=== PATIENT | male | born 1960 | race Caucasian/White ===

== ENCOUNTER 2018-11-29 12:27 | Observation (INO) | payer OTHER ==
[2018-11-29] MEDS ORDERED: DUONEB 0.5-3 MG/3 ml Neb IH ONE ×2 (12:48→12:53)
[2018-11-29] MEDS ORDERED: solu-MEDROL 125 MG IV ONE (13:03)
[2018-11-29] MEDS ORDERED: Sodium Chloride 0.9% 1000 ML 1,000 ML IV STA (13:03)
--- NOTE | 2018-11-29 13:09 | ERPHSYRPT ---
- History of Present Illness Time Seen by Provider: 11/29/18 13:05 Source: patient Exam Limitations: no limitations Patient Subjective Stated Complaint: has been diagnosed with Influenza A on Monday and now has shortness of breath with a cough Triage Nursing Assessment: Pt c/o of shortness of breath and chest pain due to a cough, diagnosed Monday with Influenza A, tachycardic, hypertensive, afebrile , hasn't eaten in 4 days, pulse ox was 87% on room air and was placed on 2L NC and it raised to 97%, lungs coarse, weak, hx of COPD Physician History: 58-year-old white male with history of COPD. Patient arrives with complaint of shortness of breath symptoms going on for several days he was seen Monday 3 days ago and diagnosed as having the flu. Patient states he was told that he was too far out to be given any flu medicine he states he is short of breath coughing he states he has had a fever before but not now noted to be tachycardic and hypertensive on arrival. No nausea no vomiting states he hasn't eaten for 4 days. Past medical history includes COPD Past surgical history includes hernia repair. Timing/Duration: day(s) (4 days) Activities at Onset: none Severity of Dyspnea-Max: moderate Severity of Dyspnea-Current: moderate Possible Cause: no prior episodes Modifying Factors: Improves With: nothing Associated Symptoms: constant, cough, fever, loss of appetite, wheezing, No intermittent, No anxiety, No chest pain/discomfort, No edema, No insomnia, No lightheadedness, No weakness, No ankle swelling, No chills, No hemoptysis, No calf pain, No dizziness, No heaviness, No heart racing, No lightheadedness, No leg swelling, No muscle spasms feet, No muscle spasms hands, No painful breathing, No productive cough, No sweating, No tightness, No tingling face, No tingling hands International travel in last 2 weeks: No Allergies/Adverse Reactions: No Known Drug Allergies Allergy (Verified 11/29/18 12:54) Home Medications: Albuterol 8 gm Mdi Hfa [Ventolin Hfa MDI] 1 inh PO UD PRN 11/29/18 [ History] Budesonide [Pulmicort Flexhaler] 90 mcg IH UD PRN 11/29/18 [History] Fluticasone Propionate [Flonase NASAL] 1 spray NS UD PRN 11/29/18 [History ] Hx Influenza Vaccination/Date Given: No - Review of Systems Constitutional: Fever, No Chills, No Fatigue, No Lethargy, No Malaise (slightly socks), No Night Sweats, No Weakness, No Weight Loss Eyes: No Symptoms Ears, Nose, & Throat: No Symptoms Respiratory: Cough, Dyspnea (when he states of many b), Wheezing, No Cyanosis, No Dyspnea on Exertion (FERNANDEZ), No Stridor (it's old how you guys) Cardiac: No Chest Pain, No Edema, No Syncope Abdominal/Gastrointestinal: Appetite Changes, No Abdominal Pain, No Nausea, No Vomiting, No Diarrhea, No Constipation, No Hematemesis, No Hematochezia, No Melena, No Dysphagia Genitourinary Symptoms: No Dysuria Musculoskeletal: No Back Pain, No Neck Pain Skin: No Rash Neurological: No Dizziness, No Focal Weakness, No Sensory Changes Psychological: No Symptoms Endocrine: No Symptoms All Other Systems: Reviewed and Negative - Past Medical History Pertinent Past Medical History: Yes Respiratory History: COPD - Past Surgical History Past Surgical History: Yes Gastrointestinal: Hernia Repair - Social History Smoking Status: Current every day smoker How long have you smoked: 40 years Exposure to second hand smoke: Yes Drug Use: none Patient Lives Alone: No - Nursing Vital Signs Nursing Vital Signs: Initial Vital Signs Temperature 97.9 F 11/29/18 12:37 Pulse Rate 116 H 11/29/18 12:37 Respiratory Rate 22 11/29/18 12:37 Blood Pressure 175/111 11/29/18 12:37 O2 Sat by Pulse Oximetry 87 L 11/29/18 12:37 Pain Scale Pain Intensity 8 - Physical Exam General Appearance: moderate distress Eye Exam: PERRL/EOMI Ears, Nose, Throat Exam: hearing grossly normal, normal ENT inspection, normal pharynx, No abnormal TM (R), No abnormal TM (L) Neck Exam: normal inspection (e had doctor visits Mo), supple Respiratory Exam: normal breath sounds, chest tenderness (Dr. Carlos castellon sensiti ), respiratory distress (had a recent bleed or so), diminished breath sounds, wheezing, No lungs clear, No crackles/rales, No rhonchi, No stridor, No pleural rub Cardiovascular/Chest Exam: tachycardia Abdominal/Gastrointestinal Exam: soft, No tenderness, No distention, No mass Extremity Exam: non-tender, normal range of motion, normal inspection, no calf tenderness, no pedal edema Peripheral Pulses Exam: dorsalis-pedis (R): 2+, dorsalis-pedis (L): 2+ Neurologic Exam: alert, oriented x 3, cooperative, jewel stringer II-XII nml as tested, sensation nml, No motor deficits Skin Exam: normal color, warm, No dry SpO2 Interpretation: normal (97%) SpO2: 97 - Course Nursing assessment & vital signs reviewed: Yes - Radiology Exams Chest X-ray Interpretation: Discussed w/ radiologist (chest x-ray: Chest x-ray unchanged again, hyperinflated and clear with few tiny calcified granulomas. Heart and mediastinal structures within normal limits. No new/acute findings) - CT Exams Chest CT Interpretation: Discussed w/radiologist (CT chest with contrast. Impression: 1. Negative pulmonary embolism. 2. Diffuse patchy air space disease greatest in right upper lobe. 3. 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 STAT Care 11/29/18 13:04 Active EKG-ER Only STAT Care 11/29/18 13:03 Active IV Insertion STAT Care 11/29/18 13:03 Active CHEST 1 VIEW (PORTABLE) Stat Exams 11/29/18 13:04 Completed CHEST WITH CONTRAST [CT] Stat Exams 11/29/18 15:38 Completed BLOOD CULTURE Stat Lab 11/29/18 13:35 Received CBC W DIFF Stat Lab 11/29/18 13:35 Completed CMP Stat Lab 11/29/18 13:25 Completed CULTURE,SPUTUM Stat Lab 11/29/18 13:03 Uncollected D-DIMER QUANTITATION Stat Lab 11/29/18 13:03 Completed Lactic Acid Stat Lab 11/29/18 13:03 Completed Lactic Acid Stat Lab 11/29/18 15:52 Results Manual Differential NC Stat Lab 11/29/18 13:35 Completed NT PRO BNP Stat Lab 11/29/18 13:25 Completed PROTIME WITH INR Stat Lab 11/29/18 13:03 Completed PTT Stat Lab 11/29/18 13:03 Completed TROPONIN Q3H Lab 11/29/18 13:35 Completed TROPONIN Q3H Lab 11/29/18 16:48 Received TROPONIN Q3H Lab 11/29/18 19:15 Ordered TROPONIN Q3H Lab 11/29/18 22:15 Ordered TROPONIN Q3H Lab 11/30/18 01:15 Ordered VENOUS BLOOD GAS Stat Lab 11/29/18 13:03 Completed Peak Expiratory Flow Rate DAILY RT 11/29/18 07:00 Completed Respiratory Therapy Assessment DAILY RT 11/30/18 07:00 Completed Medication Summary Discontinued Medications Generic Name Dose Route Start Last Admin Trade Name Ancelmo PRN Reason Stop Dose Admin Albuterol/Ipratropium Confirm 11/29/18 12:48 Duoneb 0.5-3 Mg/3 Ml Neb Administered 11/29/18 12:49 Dose 3 ml IH .STK-MED ONE Albuterol/Ipratropium 3 ml 11/29/18 12:53 11/29/18 13:07 Duoneb 0.5-3 Mg/3 Ml Neb IH 11/29/18 12:54 3 ml STAT ONE Administration Sodium Chloride 1,000 mls @ 999 mls/hr 11/29/18 13:03 11/29/18 14:35 Sodium Chloride 0.9% 1000 Ml IV 11/29/18 14:03 Infused .Q1H1M STA Infusion Sodium Chloride Confirm 11/29/18 13:28 Sodium Chloride 0.9% 1000 Ml Administered 11/29/18 13:29 Dose 1,000 mls @ ud .ROUTE .STK-MED ONE Ceftriaxone Sodium/Dextrose 1 g in 50 mls @ 100 mls/hr 11/29/18 16:45 Rocephin 1 Gm-D5w 50 Ml Bag IV 11/29/18 17:14 STAT STA Methylprednisolone Sodium Succinate 125 mg 11/29/18 13:03 11/29/18 13:36 Solu-Medrol 125 Mg IV 11/29/18 13:04 125 mg STAT ONE Administration Methylprednisolone Sodium Succinate Confirm 11/29/18 13:28 Solu-Medrol 125 Mg Administered 11/29/18 13:29 Dose 125 mg .ROUTE .STK-MED ONE Lab/Rad Data: Laboratory Result Diagrams 11/29/18 13:35 11/29/18 13:25 Laboratory Results 11/29/18 11/29/18 11/29/18 Range/Units 15:52 13:35 13:35 WBC 16.5 H (4.0-10.5) K/mm3 RBC 4.74 (4.1-5.6) M/mm3 Hgb 16.1 (12.5-18.0) gm/dl Hct 46.1 (42-50) % MCV 97.3 (78-100) fl MCH 34.0 H (26-32) pg MCHC 34.9 (32-36) g/dl RDW 13.3 (11.5-14.0) % Plt Count 226 (150-450) K/mm3 MPV 11.5 H (6-9.5) fl Segmented Neutrophils 82 H (36.-66.) % Band Neutrophils 1 (0.0-2.0) % Lymphocytes (Manual) 7 L (24-44) % Monocytes (Manual) 9 (0.0-12.0) % Eosinophils (Manual) 1 (0.00-3.0) % Toxic Granulation 1+ Platelet Estimate NORMAL (NORMAL) RBC Morphology NORMAL PT (8.83-12.87) SECONDS INR (0.8-3.0) APTT (24.1-36.1) SECONDS D-Dimer (215-500) ng/mL pO2/FiO2 Ratio % VBG pH (7.32-7.42) VBG pCO2 at Pat Temp (42-55) mm/Hg VBG pO2 at Pat Temp (25-40) mm/Hg VBG HCO3 (22-28) meq/L VBG O2 Sat (Sharri) (95-100) VBG Base Excess (-2.0-2.0) VBG Hemoglobin VBG Carboxyhemoglobin (0.0-6.9) % T HGB POC Potassium (3.5-5.1) Sodium (137-145) mmol/L Potassium (3.5-5.1) mmol/L Chloride (98-107) mmol/L Carbon Dioxide (22-30) mmol/L Anion Gap (5-15) MEQ/L BUN (9-20) mg/dL Creatinine (0.66-1.25) mg/dL Estimated GFR ML/MIN Glucose (74-106) mg/dL Lactic Acid 1.9 (0.4-2.0) Calcium (8.4-10.2) mg/dL Total Bilirubin (0.2-1.3) mg/dL AST (17-59) U/L ALT (0-50) U/L Alkaline Phosphatase (38-126) U/L Troponin I < 0.012 (0.000-0.034) ng/mL NT-Pro-B Natriuret Pep (0-900) pg/mL Serum Total Protein (6.3-8.2) g/dL Albumin (3.5-5.0) g/dL Influenza Type A Ag (NEGATIVE) Influenza Type B Ag (NEGATIVE) RSV (PCR) (Negative) 11/29/18 11/29/18 11/29/18 Range/Units 13:30 13:25 13:03 WBC (4.0-10.5) K/mm3 RBC (4.1-5.6) M/mm3 Hgb (12.5-18.0) gm/dl Hct (42-50) % MCV (78-100) fl MCH (26-32) pg MCHC (32-36) g/dl RDW (11.5-14.0) % Plt Count (150-450) K/mm3 MPV (6-9.5) fl Segmented Neutrophils (36.-66.) % Band Neutrophils (0.0-2.0) % Lymphocytes (Manual) (24-44) % Monocytes (Manual) (0.0-12.0) % Eosinophils (Manual) (0.00-3.0) % Toxic Granulation Platelet Estimate (NORMAL) RBC Morphology PT 14.1 H (8.83-12.87) SECONDS INR 1.21 (0.8-3.0) APTT 34.1 (24.1-36.1) SECONDS D-Dimer 743 H* (215-500) ng/mL pO2/FiO2 Ratio % VBG pH (7.32-7.42) VBG pCO2 at Pat Temp (42-55) mm/Hg VBG pO2 at Pat Temp (25-40) mm/Hg VBG HCO3 (22-28) meq/L VBG O2 Sat (Sharri) (95-100) VBG Base Excess (-2.0-2.0) VBG Hemoglobin VBG Carboxyhemoglobin (0.0-6.9) % T HGB POC Potassium (3.5-5.1) Sodium 131 L (137-145) mmol/L Potassium 4.3 (3.5-5.1) mmol/L Chloride 89 L (98-107) mmol/L Carbon Dioxide 27 (22-30) mmol/L Anion Gap 20.0 H (5-15) MEQ/L BUN 22 H (9-20) mg/dL Creatinine 0.64 L (0.66-1.25) mg/dL Estimated GFR > 60.0 ML/MIN Glucose 152 H (74-106) mg/dL Lactic Acid (0.4-2.0) Calcium 9.3 (8.4-10.2) mg/dL Total Bilirubin 0.60 (0.2-1.3) mg/dL AST 40 (17-59) U/L ALT 26 (0-50) U/L Alkaline Phosphatase 94 (38-126) U/L Troponin I (0.000-0.034) ng/mL NT-Pro-B Natriuret Pep 238 (0-900) pg/mL Serum Total Protein 8.3 H (6.3-8.2) g/dL Albumin 4.3 (3.5-5.0) g/dL Influenza Type A Ag POSITIVE (NEGATIVE) Influenza Type B Ag NEGATIVE (NEGATIVE) RSV (PCR) NEGATIVE (Negative) 11/29/18 Range/Units 13:03 WBC (4.0-10.5) K/mm3 RBC (4.1-5.6) M/mm3 Hgb (12.5-18.0) gm/dl Hct (42-50) % MCV (78-100) fl MCH (26-32) pg MCHC (32-36) g/dl RDW (11.5-14.0) % Plt Count (150-450) K/mm3 MPV (6-9.5) fl Segmented Neutrophils (36.-66.) % Band Neutrophils (0.0-2.0) % Lymphocytes (Manual) (24-44) % Monocytes (Manual) (0.0-12.0) % Eosinophils (Manual) (0.00-3.0) % Toxic Granulation Platelet Estimate (NORMAL) RBC Morphology PT (8.83-12.87) SECONDS INR (0.8-3.0) APTT (24.1-36.1) SECONDS D-Dimer (215-500) ng/mL pO2/FiO2 Ratio 28.0 % VBG pH 7.39 (7.32-7.42) VBG pCO2 at Pat Temp 44 (42-55) mm/Hg VBG pO2 at Pat Temp 38 (25-40) mm/Hg VBG HCO3 26.6 (22-28) meq/L VBG O2 Sat (Sharri) 75.8 L (95-100) VBG Base Excess 1.1 (-2.0-2.0) VBG Hemoglobin 16.9 VBG Carboxyhemoglobin 2.5 (0.0-6.9) % T HGB POC Potassium 4.5 (3.5-5.1) Sodium (137-145) mmol/L Potassium (3.5-5.1) mmol/L Chloride (98-107) mmol/L Carbon Dioxide (22-30) mmol/L Anion Gap (5-15) MEQ/L BUN (9-20) mg/dL Creatinine (0.66-1.25) mg/dL Estimated GFR ML/MIN Glucose (74-106) mg/dL Lactic Acid 2.0 (0.4-2.0) Calcium (8.4-10.2) mg/dL Total Bilirubin (0.2-1.3) mg/dL AST (17-59) U/L ALT (0-50) U/L Alkaline Phosphatase (38-126) U/L Troponin I (0.000-0.034) ng/mL NT-Pro-B Natriuret Pep (0-900) pg/mL Serum Total Protein (6.3-8.2) g/dL Albumin (3.5-5.0) g/dL Influenza Type A Ag (NEGATIVE) Influenza Type B Ag (NEGATIVE) RSV (PCR) (Negative) - Progress Progress: improved Air Movement: fair Progress Note: 11/29/18 16:49 58-year-old white male recently diagnosed with influenza who has a history of COPD hernia repair arrives with complaint of shortness of breath cough he was noted to be tachycardic hypertensive on arrival he states he had not eaten for 4 days he had a pulse ox of 87% on room air. Patient is improved after receiving Solu-Medrol 125 mg 1 L of normal saline, DuoNeb treatment Patient's labs patient lactate was 2.0 He does not appear to be septic however unfortunately he does have a pneumonia on his chest CT of the [facility] little nurse morning to make sure that he didn' t take them because he can have what and laboratory with diffuse patchy airspace disease most prominent in the right upper lobe He had an elevated d-dimer of 743 CT of the chest is negative for pulmonary embolism dizzy. Chest x-ray: Hyperinflated and clear with few tiny calcified granulomas heart and mediastinal structures within normal limits. No new or acute findings. EKG sinus tachycardia 103 bpm normal axis no acute ST or T wave changes. Patient's initial lactate was 2 repeat is 1.9. Impression 1 shortness of breath 2 COPD 3 influenza a 4 right upper lobe pneumonia. Plan patient is given 1 L of normal saline given Rocephin given DuoNeb treatment , given Solu-Medrol.. Is improved in condition. He states that he sees Dr. Montague will contact Dr. Montague's office. 11/29/18 17:25 Patient did have a lactate of 2.0 he did not have a fever on arrival he appeared to be markedly improved after 1 L of normal saline, and Solu-Medrol, and DuoNeb treatment did not appear to be septic. He was given Rocephin IV. Repeat lactate was 1.9. I've discussed patient's case with Dr. Montague will place patient on observation diagnosis 1. Shortness of breath 2. COPD with exacerbation 3. Pneumonia. Will continue IV normal saline, Rocephin, Solu-Medrol,. . - Departure Time of Disposition: 17:24 Departure Disposition: Observation Clinical Impression: COPD with exacerbation, Shortness of breath, Influenza A Right upper lobe pneumonia Qualifiers: Pneumonia type: due to unspecified organism Qualified Code(s): J18.1 - Lobar pneumonia, unspecified organism Condition: Fair Critical Care Time: No Referrals: HERNAN AMBROSIO FNP [Primary Care Provider] - Instructions: Chronic Obstructive Pulmonary Disease
[2018-11-29] MEDS ORDERED: solu-MEDROL 125 MG ONE (13:28)
[2018-11-29] MEDS ORDERED: Sodium Chloride 0.9% 1000 ML 1,000 ML ONE (13:28)
--- NOTE | 2018-11-29 13:29 | XRAY ---
Indication: Cough and short of breath. Flu symptoms. Comparison: November 26, 2018. Portable chest unchanged again hyperinflated and clear with a few tiny calcified granulomas. Heart and mediastinal structures within normal limits. No new/acute findings.
[2018-11-29 13:52] LABS: VBG BASE EXCESS 1.1 (-2.0-2.0); VBG CARBOXYHEMOGLOBIN 2.5 % T HGB (0.0-6.9); VBG HCO3- 26.6 meq/L (22-28); VBG HEMOGLOBIN 16.9; VBG O2 SATURATION 75.8 (95-100); VBG PCO2 44 mm/Hg (42-55); VBG PO2 38 mm/Hg (25-40); VBG POTASSIUM 4.5 (3.5-5.1); VBG pH 7.39 (7.32-7.42)
[2018-11-29 13:55] LABS: INR 1.21 (0.8-3.0); PROTIME 14.1 SECONDS (8.83-12.87); PTT 34.1 SECONDS (24.1-36.1)
[2018-11-29 14:05] LABS: ALBUMIN 4.3 g/dL (3.5-5.0); ALKALINE PHOSPHATASE 94 U/L (38-126); BLOOD UREA NITROGEN 22 mg/dL (9-20); CHLORIDE 89 mmol/L (98-107); Calcium 9.3 mg/dL (8.4-10.2); Carbon Dioxide 27 mmol/L (22-30); Creatinine 1 0.64 mg/dL (0.66-1.25); Glucose 152 mg/dL (74-106); NT PRO BNP 238 pg/mL (0-900); Potassium 4.3 mmol/L (3.5-5.1); SGOT/AST 40 U/L (17-59); SGPT/ALT 26 U/L (0-50); SODIUM 131 mmol/L (137-145); Total Protein 8.3 g/dL (6.3-8.2)
[2018-11-29 14:15] LABS: INFLUENZA A POSITIVE (NEGATIVE); INFLUENZA B NEGATIVE (NEGATIVE); RESPIRATORY SYNCTIAL VIRUS NEGATIVE (Negative)
[2018-11-29 14:27] LABS: Hematocrit 46.1 % (42-50); Hemoglobin 16.1 gm/dl (12.5-18.0); Mean Cell Volume 97.3 fl (78-100); Mean Corpuscular Hgb Concent. 34.9 g/dl (32-36); Mean Platelet Volume 11.5 fl (6-9.5); Platelet Count 226 K/mm3 (150-450); Red Blood Count 4.74 M/mm3 (4.1-5.6); Red Cell Distribution Width 13.3 % (11.5-14.0); White Blood Count 16.5 K/mm3 (4.0-10.5)
[2018-11-29 14:59] LABS: BAND 1 % (0.0-2.0); Eosinophil 1 % (0.00-3.0); Lymphocytes 7 % (24-44); Monocyte 9 % (0.0-12.0); Neutrophils 82 % (36.-66.); Total Cells Counted 100
[2018-11-29 15:00] LABS: Platelet Estimate NORMAL (NORMAL); Toxic Granulation 1+
--- NOTE | 2018-11-29 16:25 | XRAY ---
Indication: Cough and short of breath. Flu symptoms. Multiple contiguous axial images obtained through the chest using 80 cc of Isovue-370 contrast and PE protocol. Comparison: None There is satisfactory opacification of the pulmonary arteries to include the lobar and segmental branches. No filling defect or pulmonary embolus. Heart is not enlarged. Aorta is minimally outer sclerotic without aneurysm/dissection. A few small subcarinal and right hilar calcified nodes. No pathologic mediastinal/hilar lymphadenopathy. Examination of the lung parenchyma demonstrates hyperinflated lungs with mild diffuse patchy airspace disease bilaterally, greatest in the right upper lobe. No effusion. Medial right middle lobe and lesser degree left upper lobe/lingula fibrosis/scarring. Tiny left and right lower lobe calcified granulomas. Bony thorax intact with minimal degenerative changes throughout the spine. Limited upper abdomen demonstrates sub-centimeter right renal cortical cyst. Impression: 1. Negative pulmonary embolus. 2. Diffuse bilateral patchy airspace disease, greatest right upper lobe. 2. Incidental right renal cyst and evidence for old granulomatous disease.. CTDI 10.00
[2018-11-29] MEDS ORDERED: ROCEPHIN 1 Gm-D5w 50 ml Bag** 1 G/50 ML IVPB IV STA (16:45)
[2018-11-29 16:51] LABS: Lactic Acid 1.9 (0.4-2.0)
[2018-11-29] MEDS ORDERED: ROCEPHIN 1 Gm-D5w 50 ml Bag** 1 G/50 ML IVPB IV ONE (17:44)
[2018-11-29] MEDS ORDERED: DUONEB 0.5-3 MG/3 ml Neb IH PRN (19:40)
[2018-11-29] MEDS: solu-MEDROL 125 MG IV SCH (20:35)
[2018-11-29] MEDS: Sodium Chloride 0.9% 1000 ML 1,000 ML IV SCH (20:35)
[2018-11-30] MEDS: solu-MEDROL 125 MG IV SCH (00:44)
[2018-11-30] MEDS: Sodium Chloride 0.9% 1000 ML 1,000 ML IV SCH ×2 (01:00→17:11)
[2018-11-30] MEDS ORDERED: Sodium Chloride 0.9% 1000 ML 1,000 ML ONE (06:09)
[2018-11-30 07:44] LABS: Hematocrit 44.4 % (42-50); Hemoglobin 15.1 gm/dl (12.5-18.0); Mean Cell Volume 98.2 fl (78-100); Mean Corpuscular Hemoglobin 33.4 pg (26-32); Mean Platelet Volume 11.2 fl (6-9.5); Platelet Count 246 K/mm3 (150-450); Red Blood Count 4.52 M/mm3 (4.1-5.6); Red Cell Distribution Width 13.6 % (11.5-14.0); White Blood Count 13.6 K/mm3 (4.0-10.5)
[2018-11-30 08:06] LABS: ALBUMIN 3.5 g/dL (3.5-5.0); ALKALINE PHOSPHATASE 85 U/L (38-126); ANION GAP 13.6 MEQ/L (5-15); BLOOD UREA NITROGEN 17 mg/dL (9-20); CHLORIDE 96 mmol/L (98-107); Calcium 9.1 mg/dL (8.4-10.2); Carbon Dioxide 31 mmol/L (22-30); Glucose 151 mg/dL (74-106); Potassium 5.1 mmol/L (3.5-5.1); SGOT/AST 32 U/L (17-59); SGPT/ALT 22 U/L (0-50); SODIUM 136 mmol/L (137-145); Total Protein 7.2 g/dL (6.3-8.2)
[2018-11-30 08:29] LABS: BAND 20 % (0.0-2.0); Lymphocytes 5 % (24-44); Monocyte 1 % (0.0-12.0); Neutrophils 74 % (36.-66.); Platelet Estimate NORMAL (NORMAL); Total Cells Counted 100
[2018-11-30 08:47] LABS: Granulocyte Absolute (ANC) 12.77 (1.4-6.9)
[2018-11-30] MEDS ORDERED: Ventolin Hfa MDI IH PRN (08:58)
[2018-11-30] MEDS ORDERED: BUDESONIDE 90 MCG IH PRN (08:58)
[2018-11-30] MEDS ORDERED: MOTRIN 200 MG PO PRN (08:58)
[2018-11-30] MEDS ORDERED: PROVENTIL COMMON CANISTER IH PRN (09:02)
[2018-11-30] MEDS ORDERED: Flonase NASAL NS SCH (10:00)
[2018-11-30] MEDS ORDERED: ROCEPHIN 1 Gm-D5w 50 ml Bag** 1 G/50 ML IVPB IV SCH (10:00)
[2018-11-30] MEDS ORDERED: solu-MEDROL 125 MG IV SCH ×2 (10:00→22:00)
--- NOTE | 2018-11-30 12:27 | PCM.HP ---
History of Present Illness - Chief Complaint Chief Complaint: shortness of breath for 2-3 days History of Present Illness: is a 58 year old male with history of COPD. Patient arrives with complaint of shortness of breath symptoms going on for several days he was seen Monday 3 days ago and diagnosed as having the flu. Patient states he was told that he was too far out to be given any flu medicine he states he is short of breath coughing he states he has had a fever before but not now noted to be tachycardic and hypertensive on arrival. No nausea no vomiting states he hasn't eaten for 4 days. Past medical history includes COPD Past surgical history includes hernia repair. Timing/Duration: day(s) (4 days) Activities at Onset: none Severity of Dyspnea-Max: moderate Severity of Dyspnea-Current: moderate Possible Cause: no prior episodes Modifying Factors: Improves With: nothing Associated Symptoms: constant, cough, fever, loss of appetite, wheezing, No intermittent, No anxiety, No chest pain/discomfort, No edema, No insomnia, No lightheadedness, No weakness, No ankle swelling, No chills, No hemoptysis, No calf pain, No dizziness, No heaviness, No heart racing, No lightheadedness, No leg swelling, No muscle spasms feet, No muscle spasms hands, No painful breathing, No productive cough, No sweating, No tightness, No tingling face, No tingling hands - Review of Systems Constitutional: No Fever, No Chills Eyes: No Symptoms Ears, Nose, & Throat: No Symptoms Respiratory: Orthopnea, Short Of Breath, Wheezing, No Cough Cardiac: No Chest Pain, No Edema, No Syncope Abdominal/Gastrointestinal: No Abdominal Pain, No Nausea, No Vomiting, No Diarrhea Genitourinary Symptoms: No Dysuria Musculoskeletal: No Back Pain, No Neck Pain Skin: No Rash Neurological: No Dizziness, No Focal Weakness, No Sensory Changes Psychological: No Symptoms Endocrine: No Symptoms Hematologic/Lymphatic: No Symptoms Immunological/Allergic: No Symptoms Medications & Allergies Home Medications: Home Medication List Albuterol 8 gm Mdi Hfa [Ventolin Hfa MDI] 1 inh PO UD PRN 11/29/18 [ History Confirmed 11/29/18] Budesonide [Pulmicort Flexhaler] 90 mcg IH UD PRN 11/29/18 [History Confirmed ] Fluticasone Propionate [Flonase NASAL] 1 spray NS DAILY 11/29/18 [History Confirmed 11/29/18] Ibuprofen 200 mg [Motrin 200 mg] 200 mg PO Q6H PRN PRN 11/29/18 [History Confirmed 11/29/18] Allergies/Adverse Reactions: Allergies Allergy/AdvReac Type Severity Reaction Status Date / Time No Known Drug Allergies Allergy Verified 11/29/18 12:54 - Past Medical History Past Medical History: Yes Neurological History: No Pertinent History Cardiac History: No Pertinent History Respiratory History: COPD Endocrine Medical History: No Pertinent History Musculoskelatal History: No Pertinent History GI Medical History: No Pertinent History, Hernia History: No Pertinent History Pyscho-Social History: No Pertinent History Male Reproductive Disorders: No Pertinent History - Past Surgical History Past Surgical History: Yes GI Surgical History: Hernia Repair - Social History Smoking Status: Current every day smoker How long have you smoked: 40 years Exposure to second hand smoke: Yes Alcohol: Daily Drug Use: none - Physical Exam Vital Signs: Vital Signs - 24 hr Temp Pulse Resp BP Pulse Ox 11/30/18 08:01 77 18 97 11/30/18 08:00 18 11/30/18 07:47 97.2 F 76 18 135/78 97 11/29/18 23:57 97.9 F 87 20 143/74 94 L 11/29/18 21:57 96.1 F 91 H 20 139/84 95 11/29/18 20:00 95 11/29/18 19:08 87 16 124/90 95 11/29/18 18:00 78 16 128/81 95 11/29/18 17:28 97 11/29/18 17:00 72 16 148/83 98 11/29/18 16:00 78 16 97 11/29/18 15:00 96 H 18 127/72 97 11/29/18 13:53 108 H 142/99 95 11/29/18 13:42 79 24 97 11/29/18 12:37 97.9 F 116 H 22 175/111 97 Oxygen-Last 24 hours O2 Percentage 2 Liters = 28% O2 Percentage 2 Liters = 28% O2 Percentage 2 Liters = 28% O2 Percentage 2 Liters = 28% Oxygen Flowrate (L/min)-RT 2 General Appearance: no apparent distress, alert Neurologic Exam: alert, oriented x 3, cooperative, normal mood/affect, nml cerebellar function, nml station & gait, sensation nml, No motor deficits Eye Exam: PERRL/EOMI, eyes nml inspection Ears, Nose, Throat Exam: normal ENT inspection, TMs normal, pharynx normal, moist mucous membranes Neck Exam: normal inspection, non-tender, supple, full range of motion Respiratory Exam: normal breath sounds, lungs clear, diminished breath sounds, prolonged expirations, rhonchi, No respiratory distress Cardiovascular Exam: regular rate/rhythm, normal heart sounds, normal peripheral pulses Gastrointestinal/Abdomen Exam: soft, normal bowel sounds, No tenderness, No mass Back Exam: normal inspection, normal range of motion, No CVA tenderness, No vertebral tenderness Extremity Exam: normal inspection, normal range of motion, pelvis stable Skin Exam: normal color, warm, dry, No rash Lymphatic Exam: No adenopathy Results - Labs Lab/Micro Results: Lab Results-Last 24 Hours 11/29/18 11/29/18 11/29/18 Range/Units 13:03 13:03 13:25 WBC (4.0-10.5) K/mm3 RBC (4.1-5.6) M/mm3 Hgb (12.5-18.0) gm/dl Hct (42-50) % MCV (78-100) fl MCH (26-32) pg MCHC (32-36) g/dl RDW (11.5-14.0) % Plt Count (150-450) K/mm3 MPV (6-9.5) fl Absolute Granulocytes (1.4-6.9) Segmented Neutrophils (36.-66.) % Band Neutrophils (0.0-2.0) % Lymphocytes (Manual) (24-44) % Monocytes (Manual) (0.0-12.0) % Eosinophils (Manual) (0.00-3.0) % Toxic Granulation Platelet Estimate (NORMAL) RBC Morphology PT 14.1 H (8.83-12.87) SECONDS INR 1.21 (0.8-3.0) APTT 34.1 (24.1-36.1) SECONDS D-Dimer 743 H* (215-500) ng/mL pO2/FiO2 Ratio 28.0 % VBG pH 7.39 (7.32-7.42) VBG pCO2 at Pat Temp 44 (42-55) mm/Hg VBG pO2 at Pat Temp 38 (25-40) mm/Hg VBG HCO3 26.6 (22-28) meq/L VBG O2 Sat (Sharri) 75.8 L (95-100) VBG Base Excess 1.1 (-2.0-2.0) VBG Hemoglobin 16.9 VBG Carboxyhemoglobin 2.5 (0.0-6.9) % T HGB POC Potassium 4.5 (3.5-5.1) Sodium 131 L (137-145) mmol/L Potassium 4.3 (3.5-5.1) mmol/L Chloride 89 L (98-107) mmol/L Carbon Dioxide 27 (22-30) mmol/L Anion Gap 20.0 H (5-15) MEQ/L BUN 22 H (9-20) mg/dL Creatinine 0.64 L (0.66-1.25) mg/dL Estimated GFR > 60.0 ML/MIN Glucose 152 H (74-106) mg/dL Lactic Acid 2.0 (0.4-2.0) Calcium 9.3 (8.4-10.2) mg/dL Total Bilirubin 0.60 (0.2-1.3) mg/dL AST 40 (17-59) U/L ALT 26 (0-50) U/L Alkaline Phosphatase 94 (38-126) U/L Troponin (0.00-0.03) ng/mL Troponin I (0.000-0.034) ng/mL NT-Pro-B Natriuret Pep 238 (0-900) pg/mL Serum Total Protein 8.3 H (6.3-8.2) g/dL Albumin 4.3 (3.5-5.0) g/dL Influenza Type A Ag (NEGATIVE) Influenza Type B Ag (NEGATIVE) RSV (PCR) (Negative) 11/29/18 11/29/18 11/29/18 Range/Units 13:30 13:35 13:35 WBC 16.5 H (4.0-10.5) K/mm3 RBC 4.74 (4.1-5.6) M/mm3 Hgb 16.1 (12.5-18.0) gm/dl Hct 46.1 (42-50) % MCV 97.3 (78-100) fl MCH 34.0 H (26-32) pg MCHC 34.9 (32-36) g/dl RDW 13.3 (11.5-14.0) % Plt Count 226 (150-450) K/mm3 MPV 11.5 H (6-9.5) fl Absolute Granulocytes (1.4-6.9) Segmented Neutrophils 82 H (36.-66.) % Band Neutrophils 1 (0.0-2.0) % Lymphocytes (Manual) 7 L (24-44) % Monocytes (Manual) 9 (0.0-12.0) % Eosinophils (Manual) 1 (0.00-3.0) % Toxic Granulation 1+ Platelet Estimate NORMAL (NORMAL) RBC Morphology NORMAL PT (8.83-12.87) SECONDS INR (0.8-3.0) APTT (24.1-36.1) SECONDS D-Dimer (215-500) ng/mL pO2/FiO2 Ratio % VBG pH (7.32-7.42) VBG pCO2 at Pat Temp (42-55) mm/Hg VBG pO2 at Pat Temp (25-40) mm/Hg VBG HCO3 (22-28) meq/L VBG O2 Sat (Sharri) (95-100) VBG Base Excess (-2.0-2.0) VBG Hemoglobin VBG Carboxyhemoglobin (0.0-6.9) % T HGB POC Potassium (3.5-5.1) Sodium (137-145) mmol/L Potassium (3.5-5.1) mmol/L Chloride (98-107) mmol/L Carbon Dioxide (22-30) mmol/L Anion Gap (5-15) MEQ/L BUN (9-20) mg/dL Creatinine (0.66-1.25) mg/dL Estimated GFR ML/MIN Glucose (74-106) mg/dL Lactic Acid (0.4-2.0) Calcium (8.4-10.2) mg/dL Total Bilirubin (0.2-1.3) mg/dL AST (17-59) U/L ALT (0-50) U/L Alkaline Phosphatase (38-126) U/L Troponin (0.00-0.03) ng/mL Troponin I < 0.012 (0.000-0.034) ng/mL NT-Pro-B Natriuret Pep (0-900) pg/mL Serum Total Protein (6.3-8.2) g/dL Albumin (3.5-5.0) g/dL Influenza Type A Ag POSITIVE (NEGATIVE) Influenza Type B Ag NEGATIVE (NEGATIVE) RSV (PCR) NEGATIVE (Negative) 11/29/18 11/29/18 11/29/18 Range/Units 15:52 16:20 19:15 WBC (4.0-10.5) K/mm3 RBC (4.1-5.6) M/mm3 Hgb (12.5-18.0) gm/dl Hct (42-50) % MCV (78-100) fl MCH (26-32) pg MCHC (32-36) g/dl RDW (11.5-14.0) % Plt Count (150-450) K/mm3 MPV (6-9.5) fl Absolute Granulocytes (1.4-6.9) Segmented Neutrophils (36.-66.) % Band Neutrophils (0.0-2.0) % Lymphocytes (Manual) (24-44) % Monocytes (Manual) (0.0-12.0) % Eosinophils (Manual) (0.00-3.0) % Toxic Granulation Platelet Estimate (NORMAL) RBC Morphology PT (8.83-12.87) SECONDS INR (0.8-3.0) APTT (24.1-36.1) SECONDS D-Dimer (215-500) ng/mL pO2/FiO2 Ratio % VBG pH (7.32-7.42) VBG pCO2 at Pat Temp (42-55) mm/Hg VBG pO2 at Pat Temp (25-40) mm/Hg VBG HCO3 (22-28) meq/L VBG O2 Sat (Sharri) (95-100) VBG Base Excess (-2.0-2.0) VBG Hemoglobin VBG Carboxyhemoglobin (0.0-6.9) % T HGB POC Potassium (3.5-5.1) Sodium (137-145) mmol/L Potassium (3.5-5.1) mmol/L Chloride (98-107) mmol/L Carbon Dioxide (22-30) mmol/L Anion Gap (5-15) MEQ/L BUN (9-20) mg/dL Creatinine (0.66-1.25) mg/dL Estimated GFR ML/MIN Glucose (74-106) mg/dL Lactic Acid 1.9 1.8 (0.4-2.0) Calcium (8.4-10.2) mg/dL Total Bilirubin (0.2-1.3) mg/dL AST (17-59) U/L ALT (0-50) U/L Alkaline Phosphatase (38-126) U/L Troponin 0.01 (0.00-0.03) ng/mL Troponin I (0.000-0.034) ng/mL NT-Pro-B Natriuret Pep (0-900) pg/mL Serum Total Protein (6.3-8.2) g/dL Albumin (3.5-5.0) g/dL Influenza Type A Ag (NEGATIVE) Influenza Type B Ag (NEGATIVE) RSV (PCR) (Negative) 11/29/18 11/29/18 11/30/18 Range/Units 19:18 22:00 01:15 WBC (4.0-10.5) K/mm3 RBC (4.1-5.6) M/mm3 Hgb (12.5-18.0) gm/dl Hct (42-50) % MCV (78-100) fl MCH (26-32) pg MCHC (32-36) g/dl RDW (11.5-14.0) % Plt Count (150-450) K/mm3 MPV (6-9.5) fl Absolute Granulocytes (1.4-6.9) Segmented Neutrophils (36.-66.) % Band Neutrophils (0.0-2.0) % Lymphocytes (Manual) (24-44) % Monocytes (Manual) (0.0-12.0) % Eosinophils (Manual) (0.00-3.0) % Toxic Granulation Platelet Estimate (NORMAL) RBC Morphology PT (8.83-12.87) SECONDS INR (0.8-3.0) APTT (24.1-36.1) SECONDS D-Dimer (215-500) ng/mL pO2/FiO2 Ratio % VBG pH (7.32-7.42) VBG pCO2 at Pat Temp (42-55) mm/Hg VBG pO2 at Pat Temp (25-40) mm/Hg VBG HCO3 (22-28) meq/L VBG O2 Sat (Sharri) (95-100) VBG Base Excess (-2.0-2.0) VBG Hemoglobin VBG Carboxyhemoglobin (0.0-6.9) % T HGB POC Potassium (3.5-5.1) Sodium (137-145) mmol/L Potassium (3.5-5.1) mmol/L Chloride (98-107) mmol/L Carbon Dioxide (22-30) mmol/L Anion Gap (5-15) MEQ/L BUN (9-20) mg/dL Creatinine (0.66-1.25) mg/dL Estimated GFR ML/MIN Glucose (74-106) mg/dL Lactic Acid (0.4-2.0) Calcium (8.4-10.2) mg/dL Total Bilirubin (0.2-1.3) mg/dL AST (17-59) U/L ALT (0-50) U/L Alkaline Phosphatase (38-126) U/L Troponin (0.00-0.03) ng/mL Troponin I < 0.010 < 0.010 < 0.012 (0.000-0.034) ng/mL NT-Pro-B Natriuret Pep (0-900) pg/mL Serum Total Protein (6.3-8.2) g/dL Albumin (3.5-5.0) g/dL Influenza Type A Ag (NEGATIVE) Influenza Type B Ag (NEGATIVE) RSV (PCR) (Negative) 11/30/18 11/30/18 Range/Units 04:00 05:25 WBC 13.6 H (4.0-10.5) K/mm3 RBC 4.52 (4.1-5.6) M/mm3 Hgb 15.1 (12.5-18.0) gm/dl Hct 44.4 (42-50) % MCV 98.2 (78-100) fl MCH 33.4 H (26-32) pg MCHC 34.0 (32-36) g/dl RDW 13.6 (11.5-14.0) % Plt Count 246 (150-450) K/mm3 MPV 11.2 H (6-9.5) fl Absolute Granulocytes 12.77 H (1.4-6.9) Segmented Neutrophils 74 H (36.-66.) % Band Neutrophils 20 H (0.0-2.0) % Lymphocytes (Manual) 5 L (24-44) % Monocytes (Manual) 1 (0.0-12.0) % Eosinophils (Manual) (0.00-3.0) % Toxic Granulation Platelet Estimate NORMAL (NORMAL) RBC Morphology NORMAL PT (8.83-12.87) SECONDS INR (0.8-3.0) APTT (24.1-36.1) SECONDS D-Dimer (215-500) ng/mL pO2/FiO2 Ratio % VBG pH (7.32-7.42) VBG pCO2 at Pat Temp (42-55) mm/Hg VBG pO2 at Pat Temp (25-40) mm/Hg VBG HCO3 (22-28) meq/L VBG O2 Sat (Sharri) (95-100) VBG Base Excess (-2.0-2.0) VBG Hemoglobin VBG Carboxyhemoglobin (0.0-6.9) % T HGB POC Potassium (3.5-5.1) Sodium 136 L (137-145) mmol/L Potassium 5.1 (3.5-5.1) mmol/L Chloride 96 L (98-107) mmol/L Carbon Dioxide 31 H (22-30) mmol/L Anion Gap 13.6 (5-15) MEQ/L BUN 17 (9-20) mg/dL Creatinine 0.60 L (0.66-1.25) mg/dL Estimated GFR > 60.0 ML/MIN Glucose 151 H (74-106) mg/dL Lactic Acid (0.4-2.0) Calcium 9.1 (8.4-10.2) mg/dL Total Bilirubin 0.30 (0.2-1.3) mg/dL AST 32 (17-59) U/L ALT 22 (0-50) U/L Alkaline Phosphatase 85 (38-126) U/L Troponin (0.00-0.03) ng/mL Troponin I (0.000-0.034) ng/mL NT-Pro-B Natriuret Pep (0-900) pg/mL Serum Total Protein 7.2 (6.3-8.2) g/dL Albumin 3.5 (3.5-5.0) g/dL Influenza Type A Ag (NEGATIVE) Influenza Type B Ag (NEGATIVE) RSV (PCR) (Negative) - Radiology Impressions Radiology Exams & Impressions: Radiology Procedures Category Date Time Status CHEST 1 VIEW (PORTABLE) Stat Exams 11/29/18 13:04 Completed CHEST WITH CONTRAST [CT] Stat Exams 11/29/18 15:38 Completed - Other Procedures and Tests Respiratory Therapy 11/29/18 19:40 Oxygen Nasal Cannula 2 lpm 11/29/18 22:34 Smoking Cessation Education ONCE Assessment/Plan (1) Influenza A Current Visit: Yes Status: Acute Assessment & Plan: Last Vital Signs Temp 97.2 F 11/30/18 07:47 Pulse 77 11/30/18 08:01 Resp 18 11/30/18 08:01 BP 135/78 11/30/18 07:47 Pulse Ox 97 11/30/18 08:01 Allergies No Known Drug Allergies Allergy (Verified 11/29/18 12:54) Active Medications Albuterol Sulfate (Proventil Common Canister) 2 puff IH PRN PRN PRN Reason: SHORTNESS OF BREATH Stop: 12/30/18 09:01 Albuterol/Ipratropium (Duoneb 0.5-3 Mg/3 Ml Neb) 3 ml IH Q4HPRN PRN PRN Reason: SHORTNESS OF BREATH/WHEEZING Stop: 12/29/18 19:39 Budesonide (Pulmicort 0.5 Mg/2 Ml Respules) 0.5 mg IH PRN PRN PRN Reason: COPD Stop: 12/30/18 08:59 Fluticasone Propionate (Flonase Nasal) 0 gm NS DAILY TALAT Stop: 12/30/18 09:59 Last Admin: 11/30/18 11:04 Dose: 1 gm Ceftriaxone Sodium/Dextrose (Rocephin 1 Gm-D5w 50 Ml Bag) 1 g in 50 mls @ 100 mls/hr IV Q24H10 TALAT Stop: 12/30/18 09:59 Last Admin: 11/30/18 10:50 Dose: 100 mls/hr Sodium Chloride (Sodium Chloride 0.9% 1000 Ml) 1,000 mls @ 100 mls/hr IV .Q10H TALAT Stop: 12/29/18 19:39 Last Admin: 11/30/18 01:00 Dose: 100 mls/hr Ibuprofen (Motrin 200 Mg) 200 mg PO Q6H PRN PRN PRN Reason: PAIN Stop: 12/30/18 08:57 Methylprednisolone Sodium Succinate (Solu-Medrol 125 Mg) 80 mg IV Q6HT TALAT Stop: 12/30/18 09:59 Last Admin: 11/30/18 10:53 Dose: 80 mg Intake & Output 11/30/18 12/01/18 11:59 11:59 Intake Total 612 Balance 612 Weight 51.7 kg Orders 11/29/18 22:34 Termite Treater Helper/Discharge Plan Smoking Cessation Education ONCE 11/30/18 08:58 Ibuprofen 200 mg [Motrin 200 mg] 200 mg PO Q6H PRN PRN 11/30/18 09:00 Budesonide 0.5 mg/2 ml [Pulmicort 0.5 mg/2 ml Respules] 0.5 mg IH PRN PRN 11/30/18 09:02 Albuterol Common Canister [Proventil Common Canister] 2 puff IH PRN PRN 11/30/18 10:00 Fluticasone Propionate [Flonase NASAL] 0 gm NS DAILY Lab Tests 11/29/18 11/29/18 11/29/18 13:03 13:03 13:25 WBC RBC Hgb Hct MCV MCH MCHC RDW Plt Count MPV Absolute Granulocytes Segmented Neutrophils Band Neutrophils Lymphocytes (Manual) Monocytes (Manual) Eosinophils (Manual) Toxic Granulation Platelet Estimate RBC Morphology PT 14.1 H INR 1.21 APTT 34.1 D-Dimer 743 H* pO2/FiO2 Ratio 28.0 VBG pH 7.39 VBG pCO2 at Pat Temp 44 VBG pO2 at Pat Temp 38 VBG HCO3 26.6 VBG O2 Sat (Sharri) 75.8 L VBG Base Excess 1.1 VBG Hemoglobin 16.9 VBG Carboxyhemoglobin 2.5 POC Potassium 4.5 Sodium 131 L Potassium 4.3 Chloride 89 L Carbon Dioxide 27 Anion Gap 20.0 H BUN 22 H Creatinine 0.64 L Estimated GFR > 60.0 Glucose 152 H Lactic Acid 2.0 Calcium 9.3 Total Bilirubin 0.60 AST 40 ALT 26 Alkaline Phosphatase 94 Troponin Troponin I NT-Pro-B Natriuret Pep 238 Serum Total Protein 8.3 H Albumin 4.3 Influenza Type A Ag Influenza Type B Ag RSV (PCR) 11/29/18 11/29/18 11/29/18 13:30 13:35 13:35 WBC 16.5 H RBC 4.74 Hgb 16.1 Hct 46.1 MCV 97.3 MCH 34.0 H MCHC 34.9 RDW 13.3 Plt Count 226 MPV 11.5 H Absolute Granulocytes Segmented Neutrophils 82 H Band Neutrophils 1 Lymphocytes (Manual) 7 L Monocytes (Manual) 9 Eosinophils (Manual) 1 Toxic Granulation 1+ Platelet Estimate NORMAL RBC Morphology NORMAL PT INR APTT D-Dimer pO2/FiO2 Ratio VBG pH VBG pCO2 at Pat Temp VBG pO2 at Pat Temp VBG HCO3 VBG O2 Sat (Sharri) VBG Base Excess VBG Hemoglobin VBG Carboxyhemoglobin POC Potassium Sodium Potassium Chloride Carbon Dioxide Anion Gap BUN Creatinine Estimated GFR Glucose Lactic Acid Calcium Total Bilirubin AST ALT Alkaline Phosphatase Troponin Troponin I < 0.012 NT-Pro-B Natriuret Pep Serum Total Protein Albumin Influenza Type A Ag POSITIVE Influenza Type B Ag NEGATIVE RSV (PCR) NEGATIVE 11/29/18 11/29/18 11/29/18 15:52 16:20 19:15 WBC RBC Hgb Hct MCV MCH MCHC RDW Plt Count MPV Absolute Granulocytes Segmented Neutrophils Band Neutrophils Lymphocytes (Manual) Monocytes (Manual) Eosinophils (Manual) Toxic Granulation Platelet Estimate RBC Morphology PT INR APTT D-Dimer pO2/FiO2 Ratio VBG pH VBG pCO2 at Pat Temp VBG pO2 at Pat Temp VBG HCO3 VBG O2 Sat (Sharri) VBG Base Excess VBG Hemoglobin VBG Carboxyhemoglobin POC Potassium Sodium Potassium Chloride Carbon Dioxide Anion Gap BUN Creatinine Estimated GFR Glucose Lactic Acid 1.9 1.8 Calcium Total Bilirubin AST ALT Alkaline Phosphatase Troponin 0.01 Troponin I NT-Pro-B Natriuret Pep Serum Total Protein Albumin Influenza Type A Ag Influenza Type B Ag RSV (PCR) 11/29/18 11/29/18 11/30/18 19:18 22:00 01:15 WBC RBC Hgb Hct MCV MCH MCHC RDW Plt Count MPV Absolute Granulocytes Segmented Neutrophils Band Neutrophils Lymphocytes (Manual) Monocytes (Manual) Eosinophils (Manual) Toxic Granulation Platelet Estimate RBC Morphology PT INR APTT D-Dimer pO2/FiO2 Ratio VBG pH VBG pCO2 at Pat Temp VBG pO2 at Pat Temp VBG HCO3 VBG O2 Sat (Sharri) VBG Base Excess VBG Hemoglobin VBG Carboxyhemoglobin POC Potassium Sodium Potassium Chloride Carbon Dioxide Anion Gap BUN Creatinine Estimated GFR Glucose Lactic Acid Calcium Total Bilirubin AST ALT Alkaline Phosphatase Troponin Troponin I < 0.010 < 0.010 < 0.012 NT-Pro-B Natriuret Pep Serum Total Protein Albumin Influenza Type A Ag Influenza Type B Ag RSV (PCR) 11/30/18 11/30/18 04:00 05:25 WBC 13.6 H RBC 4.52 Hgb 15.1 Hct 44.4 MCV 98.2 MCH 33.4 H MCHC 34.0 RDW 13.6 Plt Count 246 MPV 11.2 H Absolute Granulocytes 12.77 H Segmented Neutrophils 74 H Band Neutrophils 20 H Lymphocytes (Manual) 5 L Monocytes (Manual) 1 Eosinophils (Manual) Toxic Granulation Platelet Estimate NORMAL RBC Morphology NORMAL PT INR APTT D-Dimer pO2/FiO2 Ratio VBG pH VBG pCO2 at Pat Temp VBG pO2 at Pat Temp VBG HCO3 VBG O2 Sat (Sharri) VBG Base Excess VBG Hemoglobin VBG Carboxyhemoglobin POC Potassium Sodium 136 L Potassium 5.1 Chloride 96 L Carbon Dioxide 31 H Anion Gap 13.6 BUN 17 Creatinine 0.60 L Estimated GFR > 60.0 Glucose 151 H Lactic Acid Calcium 9.1 Total Bilirubin 0.30 AST 32 ALT 22 Alkaline Phosphatase 85 Troponin Troponin I NT-Pro-B Natriuret Pep Serum Total Protein 7.2 Albumin 3.5 Influenza Type A Ag Influenza Type B Ag RSV (PCR) Code(s): J10.1 - FLU DUE TO OTH IDENT INFLUENZA VIRUS W OTH RESP MANIFEST (2) COPD with exacerbation Current Visit: Yes Status: Acute Assessment & Plan: continue present management Code(s): J44.1 - CHRONIC OBSTRUCTIVE PULMONARY DISEASE W (ACUTE) EXACERBATION (3) Right upper lobe pneumonia Current Visit: Yes Status: Acute Qualifiers: Pneumonia type: due to influenza A virus Qualified Code(s): J11.00 - Influenza due to unidentified influenza virus with unspecified type of pneumonia Code(s): J18.1 - LOBAR PNEUMONIA, UNSPECIFIED ORGANISM
[2018-11-30] MEDS: DUONEB 0.5-3 MG/3 ml Neb IH SCH ×2 (12:54→19:47)
[2018-11-30] MEDS: PULMICORT 0.5 MG/2 ML RESPULES IH PRN ×2 (12:54→19:47)
[2018-12-01 00:09] VITALS: O2SAT 95
[2018-12-01] MEDS: Sodium Chloride 0.9% 1000 ML 1,000 ML IV SCH (03:47)
--- NOTE | 2018-12-01 07:00 | PCM.DS ---
Discharge Summary Date of Admission: 11/29/18 19:37 Admitting Physician: HARSHIL JIMENEZ Primary Care Provider: HARSHIL JIMENEZ Allergies Allergies No Known Drug Allergies Allergy (Verified 11/29/18 12:54) Hospital Summary - Hospital Course Hospital Course: Last Vital Signs Temp 97.6 F 12/01/18 04:00 Pulse 74 12/01/18 04:00 Resp 19 12/01/18 04:00 BP 142/88 12/01/18 04:00 Pulse Ox 95 12/01/18 04:00 Allergies No Known Drug Allergies Allergy (Verified 11/29/18 12:54) Active Medications Albuterol Sulfate (Proventil Common Canister) 2 puff IH PRN PRN PRN Reason: SHORTNESS OF BREATH Stop: 12/30/18 09:01 Albuterol/Ipratropium (Duoneb 0.5-3 Mg/3 Ml Neb) 3 ml IH TIDRT TALAT Stop: 12/30/18 12:59 Last Admin: 11/30/18 19:47 Dose: 3 ml Budesonide (Pulmicort 0.5 Mg/2 Ml Respules) 0.5 mg IH PRN PRN PRN Reason: COPD Stop: 12/30/18 08:59 Last Admin: 11/30/18 19:47 Dose: 0.5 mg Fluticasone Propionate (Flonase Nasal) 0 gm NS DAILY TALAT Stop: 12/30/18 09:59 Last Admin: 11/30/18 11:04 Dose: 1 gm Ceftriaxone Sodium/Dextrose (Rocephin 1 Gm-D5w 50 Ml Bag) 1 g in 50 mls @ 100 mls/hr IV Q24H10 TALAT Stop: 12/30/18 09:59 Last Admin: 11/30/18 10:50 Dose: 100 mls/hr Sodium Chloride (Sodium Chloride 0.9% 1000 Ml) 1,000 mls @ 100 mls/hr IV .Q10H TALAT Stop: 12/29/18 19:39 Last Admin: 12/01/18 03:47 Dose: 100 mls/hr Ibuprofen (Motrin 200 Mg) 200 mg PO Q6H PRN PRN PRN Reason: PAIN Stop: 12/30/18 08:57 Methylprednisolone Sodium Succinate (Solu-Medrol 125 Mg) 80 mg IV Q12HT TALAT Stop: 12/30/18 21:59 Last Admin: 11/30/18 21:55 Dose: 80 mg Intake & Output 11/30/18 12/01/18 11:59 11:59 Intake Total 852 3209 Output Total 950 Balance 852 2259 Weight 51.7 kg Orders 11/30/18 08:58 Ibuprofen 200 mg [Motrin 200 mg] 200 mg PO Q6H PRN PRN 11/30/18 09:00 Budesonide 0.5 mg/2 ml [Pulmicort 0.5 mg/2 ml Respules] 0.5 mg IH PRN PRN 11/30/18 09:02 Albuterol Common Canister [Proventil Common Canister] 2 puff IH PRN PRN 11/30/18 10:00 Fluticasone Propionate [Flonase NASAL] 0 gm NS DAILY 11/30/18 13:00 Albuterol/Ipratropium 3ml Neb* [DUONEB 0.5-3 MG/3 ml Neb] 3 ml IH TIDRT 11/30/18 22:00 Methylprednis Sod Succ 125 mg* [solu-MEDROL 125 MG] 80 mg IV Q12HT Lab Tests 11/30/18 11/30/18 11/30/18 01:15 04:00 05:25 WBC 13.6 H RBC 4.52 Hgb 15.1 Hct 44.4 MCV 98.2 MCH 33.4 H MCHC 34.0 RDW 13.6 Plt Count 246 MPV 11.2 H Absolute Granulocytes 12.77 H Segmented Neutrophils 74 H Band Neutrophils 20 H Lymphocytes (Manual) 5 L Monocytes (Manual) 1 Platelet Estimate NORMAL RBC Morphology NORMAL Sodium 136 L Potassium 5.1 Chloride 96 L Carbon Dioxide 31 H Anion Gap 13.6 BUN 17 Creatinine 0.60 L Estimated GFR > 60.0 Glucose 151 H Calcium 9.1 Total Bilirubin 0.30 AST 32 ALT 22 Alkaline Phosphatase 85 Troponin I < 0.012 Serum Total Protein 7.2 Albumin 3.5 Microbiology 11/29/18 13:35 Blood Blood Culture - Preliminary NO GROWTH TO DATE 11/29/18 13:25 Blood Blood Culture - Preliminary NO GROWTH TO DATE - Vitals & Intake/Output Vital Signs: Vital Signs Temperature 97.6 F 12/01/18 04:00 Pulse Rate 74 12/01/18 04:00 Respiratory Rate 19 12/01/18 04:00 Blood Pressure 142/88 12/01/18 04:00 O2 Sat by Pulse Oximetry 95 12/01/18 04:00 Oxygen-Last Documented O2 Percentage 2 Liters = 28% Intake & Output: Intake & Output 11/28/18 11/29/18 11/30/18 12/01/18 11:59 11:59 11:59 11:59 Intake Total 852 3209 Output Total 950 Balance 852 2259 Weight 51.7 kg - Lab Result Diagrams: 11/30/18 04:00 11/30/18 05:25 Lab Results-Last 24 Hrs: Lab Results-Last 24 Hours 11/30/18 11/30/18 11/30/18 Range/Units 01:15 04:00 05:25 WBC 13.6 H (4.0-10.5) K/mm3 RBC 4.52 (4.1-5.6) M/mm3 Hgb 15.1 (12.5-18.0) gm/dl Hct 44.4 (42-50) % MCV 98.2 (78-100) fl MCH 33.4 H (26-32) pg MCHC 34.0 (32-36) g/dl RDW 13.6 (11.5-14.0) % Plt Count 246 (150-450) K/mm3 MPV 11.2 H (6-9.5) fl Absolute Granulocytes 12.77 H (1.4-6.9) Segmented Neutrophils 74 H (36.-66.) % Band Neutrophils 20 H (0.0-2.0) % Lymphocytes (Manual) 5 L (24-44) % Monocytes (Manual) 1 (0.0-12.0) % Platelet Estimate NORMAL (NORMAL) RBC Morphology NORMAL Sodium 136 L (137-145) mmol/L Potassium 5.1 (3.5-5.1) mmol/L Chloride 96 L (98-107) mmol/L Carbon Dioxide 31 H (22-30) mmol/L Anion Gap 13.6 (5-15) MEQ/L BUN 17 (9-20) mg/dL Creatinine 0.60 L (0.66-1.25) mg/dL Estimated GFR > 60.0 ML/MIN Glucose 151 H (74-106) mg/dL Calcium 9.1 (8.4-10.2) mg/dL Total Bilirubin 0.30 (0.2-1.3) mg/dL AST 32 (17-59) U/L ALT 22 (0-50) U/L Alkaline Phosphatase 85 (38-126) U/L Troponin I < 0.012 (0.000-0.034) ng/mL Serum Total Protein 7.2 (6.3-8.2) g/dL Albumin 3.5 (3.5-5.0) g/dL Micro Results-Entire Visit: Microbiology 11/29/18 13:35 Blood Culture - Preliminary Blood NO GROWTH TO DATE 11/29/18 13:25 Blood Culture - Preliminary Blood NO GROWTH TO DATE - Radiology Exams Ordered Rad Exams-Entire Visit: Radiology Procedures Category Date Time Status CHEST 1 VIEW (PORTABLE) Stat Exams 11/29/18 13:04 Completed CHEST WITH CONTRAST [CT] Stat Exams 11/29/18 15:38 Completed - Procedures and Test Procedures and Tests throughout Hospitalization: Therapy Orders & Screens 11/29/18 07:00 Peak Expiratory Flow Rate DAILY Comment: Reason For Exam: 11/29/18 19:40 Oxygen Nasal Cannula 2 lpm Comment: Respiratory Therapy Consult ROUTINE Comment: Reason For Exam: 11/29/18 22:34 RT Screen per Nursing Assess ONCE Comment: Protocol Order Physician Instructions: Greater than 3 points order RT Admission Screen Reason For Exam: Triggered on Admission Diagnosis: SOB, COPD exaccerbation, pneumonia, influenza a Diagnosis: SOB, COPD exaccerbation, pneumonia, influenza a Pneumonia: Yes Home O2: No Asthma: No CHF: No Home CPAP/BIPAP: Yes Home Nebs/MDI: Yes Total Points: 13 Smoking Cessation Education ONCE Comment: Diagnosis: SOB, COPD exaccerbation, pneumonia, influenza a Smoking Status: Current every day smoker How long have you smoked: 40 years Approximately how many cigarettes per day: 30 Do you dip or chew tobacco: No 11/30/18 07:00 Respiratory Therapy Assessment DAILY Comment: Discharge Exam General Appearance: no apparent distress, alert Neurologic Exam: alert, oriented x 3, cooperative, normal mood/affect, nml cerebellar function, sensation nml, No motor deficits Skin Exam: normal color, warm, dry Eye Exam: PERRL, EOMI, eyes nml inspection Ears, Nose, Throat Exam: normal ENT inspection, pharynx normal, moist mucous membranes Neck Exam: normal inspection, non-tender, supple, full range of motion Respiratory Exam: normal breath sounds, lungs clear, No respiratory distress Cardiovascular Exam: regular rate/rhythm, normal heart sounds Gastrointestinal/Abdomen Exam: soft, No tenderness, No mass Extremity Exam: normal inspection, normal range of motion Back Exam: normal inspection, normal range of motion, No CVA tenderness, No vertebral tenderness Male Genitalia Exam: deferred Rectal Exam: deferred Final Diagnosis/Problem List - Final Discharge Diagnosis/Problem (1) Influenza A Current Visit: Yes Status: Acute Assessment & Plan: improved Code(s): J10.1 - FLU DUE TO OTH IDENT INFLUENZA VIRUS W OTH RESP MANIFEST (2) COPD with exacerbation Current Visit: Yes Status: Resolved Code(s): J44.1 - CHRONIC OBSTRUCTIVE PULMONARY DISEASE W (ACUTE) EXACERBATION (3) Right upper lobe pneumonia Current Visit: Yes Status: Acute Code(s): J18.1 - LOBAR PNEUMONIA, UNSPECIFIED ORGANISM - Discharge Discharge Date: 12/01/18 Disposition: Home, Self-Care Condition: Fair Prescriptions: New Cephalexin Mh 500 mg [Keflex 500 mg] 500 mg PO QID #20 capsule Continue Fluticasone Propionate [Flonase NASAL] 1 spray NS DAILY Budesonide [Pulmicort Flexhaler] 90 mcg IH UD PRN PRN Reason: Shortness Of Breath Albuterol 8 gm Mdi Hfa [Ventolin Hfa MDI] 1 inh PO UD PRN PRN Reason: Shortness Of Breath Ibuprofen 200 mg [Motrin 200 mg] 200 mg PO Q6H PRN PRN PRN Reason: Pain Follow up with: HARSHIL JIMENEZ MD [Primary Care Provider] - 1 Week
[2018-12-01 09:45] VITALS: BP 150/77; PULSE 68
== END 2018-12-01 09:20 | disposition home or self-care (01) ==
LOC: ED 12:27 → MED SURG 19:37
PROVIDERS: ADMIT General Practice; ATTEND General Practice
DX: J10.00 Influenza due to other identified influenza virus with unspecified type of pneumonia (principal); J18.1 Lobar pneumonia, unspecified organism; J44.1 Chronic obstructive pulmonary disease with (acute) exacerbation; R00.0 Tachycardia, unspecified; I10 Essential (primary) hypertension; Z79.899 Other long term (current) drug therapy
CPT/HCPCS: 36415; 71045; 71260; 80053; 82805; 83605; 83880; 84484; 85025; 85379; 85610; 85730; 87040; 87631; 93005; 93268; 94150; 94640; 94762; 96360; 96365; 96374; 99285; G0378; J0696; J2930; A9270-GY

== ENCOUNTER 2019-10-13 22:25 | Emergency (ER) | payer OTHER ==
[2019-10-13] MEDS ORDERED: solu-MEDROL 125 MG IV ONE (22:37)
[2019-10-13] MEDS ORDERED: DUONEB 0.5-3 MG/3 ml Neb IH ONE ×2 (22:37→22:38)
--- NOTE | 2019-10-13 22:43 | ERPHSYRPT ---
- History of Present Illness Time Seen by Provider: 10/13/19 22:28 Source: patient, family Exam Limitations: no limitations Patient Subjective Stated Complaint: pt has been short of breath for approx 2 months and has been much worse today Triage Nursing Assessment: pt alert and oriented, answers questions approp. pt to room per wheelchair, transfers to stretcher with assist of 1. frequent dry cough noted. pt states is nonproductive at this time. exp wheezing noted throughout. pt o2 sat 90 on room air on arrival. 97% after o2 2l per nc applied. skin warm and dry. Timing/Duration: week(s) (2) Cough Quality/Degree: severe, dry cough Possible Cause: occasional episodes Modifying Factors: Improves With: albuterol inhaler Associated Symptoms: cough, shortness of breath, wheezing International travel in last 2 weeks: No Allergies/Adverse Reactions: No Known Drug Allergies Allergy (Verified 10/13/19 22:42) Home Medications: Albuterol 8 gm Mdi Hfa [Ventolin Hfa MDI] 1 inh PO UD PRN 11/29/18 [ History] Fluticasone Propionate [Flonase NASAL] 1 spray NS DAILY 11/29/18 [History] Hx Tetanus, Diphtheria Vaccination/Date Given: No (unsure) Hx Influenza Vaccination/Date Given: Yes Hx Pneumococcal Vaccination/Date Given: No Immunizations Up to Date: Yes - Review of Systems Constitutional: No Fever, No Chills Eyes: No Symptoms Ears, Nose, & Throat: No Symptoms Respiratory: Cough, Dyspnea, Dyspnea on Exertion (FERNANDEZ), Wheezing Cardiac: No Chest Pain, No Edema, No Syncope Abdominal/Gastrointestinal: No Abdominal Pain, No Nausea, No Vomiting, No Diarrhea Genitourinary Symptoms: No Dysuria Musculoskeletal: No Back Pain, No Neck Pain Skin: No Rash Neurological: No Dizziness, No Focal Weakness, No Sensory Changes Psychological: No Symptoms Endocrine: No Symptoms All Other Systems: Reviewed and Negative - Past Medical History Pertinent Past Medical History: Yes Neurological History: No Pertinent History Cardiac History: No Pertinent History Respiratory History: COPD Endocrine Medical History: No Pertinent History Musculoskeletal History: No Pertinent History GI Medical History: No Pertinent History, Hernia History: No Pertinent History Psycho-Social History: No Pertinent History Male Reproductive Disorders: No Pertinent History - Past Surgical History Past Surgical History: Yes Gastrointestinal: Hernia Repair Other Surgical History: cyst removed from face 2-3 yrs - Social History Smoking Status: Current every day smoker How long have you smoked: 40 years Exposure to second hand smoke: Yes Drug Use: none Patient Lives Alone: No - Nursing Vital Signs Nursing Vital Signs: Initial Vital Signs Temperature 97.6 F 10/13/19 22:26 Pulse Rate 107 H 10/13/19 22:26 Respiratory Rate 24 10/13/19 22:26 Blood Pressure 191/98 10/13/19 22:26 O2 Sat by Pulse Oximetry 90 L 10/13/19 22:26 - Physical Exam General Appearance: mild distress, alert, cachetic Eye Exam: PERRL/EOMI, eyes nml inspection Ears, Nose, Throat Exam: normal ENT inspection, TMs normal, pharynx normal, moist mucous membranes Neck Exam: normal inspection, non-tender, supple, full range of motion Respiratory Exam: respiratory distress (mild), airway intact, diminished breath sounds, wheezing (BL end exp), No accessory muscle use Cardiovascular Exam: normal heart sounds, tachycardia Gastrointestinal/Abdomen Exam: soft, No tenderness Back Exam: normal inspection, No CVA tenderness, No vertebral tenderness Extremity Exam: normal inspection, normal range of motion Neurologic Exam: alert, oriented x 3, cooperative, normal mood/affect, sensation nml, No motor deficits Skin Exam: normal color, warm, dry, No rash Lymphatic Exam: No adenopathy SpO2: 97 - Course Nursing assessment & vital signs reviewed: Yes EKG Interpreted by Me: RATE (106), Sinus Tach, Non-specific ST Changes - Radiology Exams Chest X-ray Interpretation: Reviewed by me, Other (question pulm nodules. ) Ordered Tests: Active Orders 24 hr Category Date Time Status Injection Mold Tooling Technician STAT Care 10/13/19 22:38 Active EKG-ER Only STAT Care 10/13/19 22:40 Active IV Insertion STAT Care 10/13/19 22:37 Active Oxygen-ED Only Nasal Cannula 2 lpm Care 10/13/19 22:37 Active CHEST 1 VIEW (PORTABLE) Stat Exams 10/13/19 22:32 Taken CBC W DIFF Stat Lab 10/13/19 23:01 Completed CMP Stat Lab 10/13/19 23:01 Completed Lactic Acid Stat Lab 10/13/19 23:12 Completed MAGNESIUM Stat Lab 10/13/19 23:01 Completed NT PRO BNP Stat Lab 10/13/19 23:01 Completed PROTIME WITH INR Stat Lab 10/13/19 23:01 Completed TROPONIN Urgent Lab 10/13/19 23:01 Completed Respiratory Therapy Assessment DAILY RT 10/13/19 22:44 Completed Respiratory Therapy Assessment DAILY RT 10/13/19 23:54 Active Medication Summary Generic Name Dose Route Start Last Admin Trade Name Freq PRN Reason Stop Dose Admin Sodium Chloride 1,000 mls @ 100 mls/hr 10/13/19 22:45 10/13/19 22:54 Sodium Chloride 0.9% 1000 Ml IV 11/12/19 22:44 100 mls/hr .Q10H TALAT Administration Discontinued Medications Generic Name Dose Route Start Last Admin Trade Name Freq PRN Reason Stop Dose Admin Albuterol/Ipratropium 3 ml 10/13/19 22:37 10/13/19 22:44 Duoneb 0.5-3 Mg/3 Ml Neb IH 10/13/19 22:38 3 ml STAT ONE Administration Albuterol/Ipratropium Confirm 10/13/19 22:38 Duoneb 0.5-3 Mg/3 Ml Neb Administered 10/13/19 22:39 Dose 3 ml IH .STK-MED ONE Levalbuterol HCl 2.5 mg 10/13/19 23:50 10/13/19 23:58 Xopenex 1.25 Mg/0.5 Ml Ud Nebule IH 10/13/19 23:51 2.5 mg STAT ONE Administration Levalbuterol HCl Confirm 10/13/19 23:53 Xopenex 1.25 Mg/0.5 Ml Ud Nebule Administered 10/13/19 23:54 Dose 1.25 mg IH .STK-MED ONE Methylprednisolone Sodium Succinate 125 mg 10/13/19 22:37 10/13/19 22:53 Solu-Medrol 125 Mg IV 10/13/19 22:38 125 mg STAT ONE Administration Methylprednisolone Sodium Succinate Confirm 10/13/19 22:44 Solu-Medrol 125 Mg Administered 10/13/19 22:45 Dose 125 mg .ROUTE .STK-MED ONE Sodium Chloride Confirm 10/13/19 23:53 Sodium Chloride 3 Ml Ud Nebules Administered 10/13/19 23:54 Dose 3 ml IH .STK-MED ONE Lab/Rad Data: Laboratory Result Diagrams 10/13/19 23:01 10/13/19 23:01 Laboratory Results 10/13/19 10/13/19 10/13/19 Range/Units 23:12 23:08 23:01 WBC (4.0-10.5) K/mm3 RBC (4.1-5.6) M/mm3 Hgb (12.5-18.0) gm/dl Hct (42-50) % MCV (78-100) fl MCH (26-32) pg MCHC (32-36) g/dl RDW (11.5-14.0) % Plt Count (150-450) K/mm3 MPV (7.5-11.0) fl Gran % (36.0-66.0) % Eos # (Auto) (0-0.5) Absolute Lymphs (auto) (1.0-4.6) Absolute Monos (auto) (0.0-1.3) Lymphocytes % (24.0-44.0) % Monocytes % (0.0-12.0) % Eosinophils % (0.00-5.0) % Basophils % (0.0-0.4) % Absolute Granulocytes (1.4-6.9) Basophils # (0-0.4) PT (8.83-12.87) SECONDS INR (0.8-3.0) Sodium (137-145) mmol/L Potassium (3.5-5.1) mmol/L Chloride (98-107) mmol/L Carbon Dioxide (22-30) mmol/L Anion Gap (5-15) MEQ/L BUN (9-20) mg/dL Creatinine (0.66-1.25) mg/dL Estimated GFR ML/MIN Glucose (74-106) mg/dL Lactic Acid 1.8 (0.4-2.0) Calcium (8.4-10.2) mg/dL Magnesium (1.6-2.3) mg/dL Total Bilirubin (0.2-1.3) mg/dL AST (17-59) U/L ALT (0-50) U/L Alkaline Phosphatase (38-126) U/L Troponin I < 0.012 (0.000-0.034) ng/mL NT-Pro-B Natriuret Pep (0-900) pg/mL Serum Total Protein (6.3-8.2) g/dL Albumin (3.5-5.0) g/dL Influenza Type A Ag NEGATIVE (NEGATIVE) Influenza Type B Ag NEGATIVE (NEGATIVE) RSV (PCR) NEGATIVE (Negative) 10/13/19 10/13/19 10/13/19 Range/Units 23:01 23:01 23:01 WBC 14.6 H (4.0-10.5) K/mm3 RBC 4.42 (4.1-5.6) M/mm3 Hgb 15.6 (12.5-18.0) gm/dl Hct 43.7 (42-50) % MCV 98.9 (78-100) fl MCH 35.3 H (26-32) pg MCHC 35.7 (32-36) g/dl RDW 12.6 (11.5-14.0) % Plt Count 259 (150-450) K/mm3 MPV 10.2 (7.5-11.0) fl Gran % 74.2 H (36.0-66.0) % Eos # (Auto) 0.07 (0-0.5) Absolute Lymphs (auto) 1.97 (1.0-4.6) Absolute Monos (auto) 1.69 H (0.0-1.3) Lymphocytes % 13.5 L (24.0-44.0) % Monocytes % 11.6 (0.0-12.0) % Eosinophils % 0.5 (0.00-5.0) % Basophils % 0.2 (0.0-0.4) % Absolute Granulocytes 10.82 H (1.4-6.9) Basophils # 0.03 (0-0.4) PT 11.3 (8.83-12.87) SECONDS INR 1.00 (0.8-3.0) Sodium 131 L (137-145) mmol/L Potassium 4.3 (3.5-5.1) mmol/L Chloride 91 L (98-107) mmol/L Carbon Dioxide 28 (22-30) mmol/L Anion Gap 16.4 H (5-15) MEQ/L BUN 7 L (9-20) mg/dL Creatinine 0.48 L (0.66-1.25) mg/dL Estimated GFR > 60.0 ML/MIN Glucose 84 (74-106) mg/dL Lactic Acid (0.4-2.0) Calcium 9.6 (8.4-10.2) mg/dL Magnesium 1.8 (1.6-2.3) mg/dL Total Bilirubin 0.70 (0.2-1.3) mg/dL AST 35 (17-59) U/L ALT 16 (0-50) U/L Alkaline Phosphatase 90 (38-126) U/L Troponin I (0.000-0.034) ng/mL NT-Pro-B Natriuret Pep 62.8 (0-900) pg/mL Serum Total Protein 8.7 H (6.3-8.2) g/dL Albumin 4.9 (3.5-5.0) g/dL Influenza Type A Ag (NEGATIVE) Influenza Type B Ag (NEGATIVE) RSV (PCR) (Negative) - Progress Progress: improved Air Movement: good Progress Note: 10/14/19 01:14 Pt did well with NEB, solumedrol. Work up neg. Pt feeling well. d/w about condition. Trying to stop but pt reluctant at this time. Pt's brother just passed last week. Feel good and want to go home. Pred taper and continue with INH. Blood Culture(s) Obtained: No Antibiotics given: No Counseled pt/family regarding: lab results, diagnosis, need for follow-up, rad results - Departure Departure Disposition: Home Clinical Impression: COPD exacerbation Condition: Good Critical Care Time: Yes Critical Care Time(excluding separately billable procedures): Critical 30-74 mins Referrals: HARSHIL JIMENEZ MD [Primary Care Provider] - Instructions: Exacerbation of COPD (DC) Additional Instructions: Continue with INH. Prednisone for few days. Follow up with pcp for recheck. Return to ER if worse. Prescriptions: Prednisone 40 mg PO DAILY 5 Days #10 tablet
[2019-10-13] MEDS ORDERED: solu-MEDROL 125 MG ONE (22:44)
[2019-10-13] MEDS ORDERED: Sodium Chloride 0.9% 1000 ML 0 ML ONE (22:44)
[2019-10-13] MEDS ORDERED: Sodium Chloride 0.9% 1000 ML 1,000 ML IV SCH (22:45)
[2019-10-13] MEDS ORDERED: Sodium Chloride 0.9% 1000 ML 1,000 ML ONE (22:47)
[2019-10-13 22:57] LABS: Absolute Neutrophil Ct (ANC) 10.82 (1.4-6.9); BASOPHIL % 0.2 % (0.0-0.4); Basophil (Absolute #) 0.03 (0-0.4); Eosinophil % 0.5 % (0.00-5.0); Eosinophil (Absolute #) 0.07 (0-0.5); Hematocrit 43.7 % (42-50); Hemoglobin 15.6 gm/dl (12.5-18.0); Lymphocyte (Absolute #) 1.97 (1.0-4.6); Lymphocytes % 13.5 % (24.0-44.0); Mean Cell Volume 98.9 fl (78-100); Mean Corpuscular Hemoglobin 35.3 pg (26-32); Mean Corpuscular Hgb Concent. 35.7 g/dl (32-36); Mean Platelet Volume 10.2 fl (7.5-11.0); Monocyte (Absolute #) 1.69 (0.0-1.3); Monocytes % 11.6 % (0.0-12.0); Neutrophil % 74.2 % (36.0-66.0); Platelet Count 259 K/mm3 (150-450); Red Blood Count 4.42 M/mm3 (4.1-5.6); Red Cell Distribution Width 12.6 % (11.5-14.0); White Blood Count 14.6 K/mm3 (4.0-10.5)
[2019-10-13 23:09] LABS: PROTIME 11.3 SECONDS (8.83-12.87)
[2019-10-13 23:21] LABS: ALBUMIN 4.9 g/dL (3.5-5.0); ALKALINE PHOSPHATASE 90 U/L (38-126); ANION GAP 16.4 MEQ/L (5-15); BLOOD UREA NITROGEN 7 mg/dL (9-20); CHLORIDE 91 mmol/L (98-107); Calcium 9.6 mg/dL (8.4-10.2); Carbon Dioxide 28 mmol/L (22-30); Creatinine 1 0.48 mg/dL (0.66-1.25); Glucose 84 mg/dL (74-106); MAGNESIUM 1.8 mg/dL (1.6-2.3); NT PRO BNP 62.8 pg/mL (0-900); Potassium 4.3 mmol/L (3.5-5.1); SGOT/AST 35 U/L (17-59); SGPT/ALT 16 U/L (0-50); SODIUM 131 mmol/L (137-145); Total Protein 8.7 g/dL (6.3-8.2)
[2019-10-13 23:42] LABS: INFLUENZA A NEGATIVE (NEGATIVE); INFLUENZA B NEGATIVE (NEGATIVE); RESPIRATORY SYNCTIAL VIRUS NEGATIVE (Negative)
[2019-10-13] MEDS ORDERED: Xopenex 1.25 MG/0.5 ML UD NEBULE IH ONE ×2 (23:50→23:53)
[2019-10-13] MEDS ORDERED: Sodium Chloride 3 ML UD NEBULES IH ONE (23:53)
[2019-10-14] MEDS ORDERED: DELTASONE 20 MG PO ONE (01:13)
[2019-10-14] MEDS ORDERED: DELTASONE 20 MG ONE ×2 (01:31)
[2019-10-14 01:40] VITALS: BP 168/74; PULSE 112; O2SAT 95
[2019-10-14 01:45] LABS: Slide Review 1 YES
--- NOTE | 2019-10-14 08:54 | XRAY ---
Indication: Cough and short of breath. Comparison: November 29, 2018. Portable chest remains hyperinflated and clear with incidental tiny calcified granulomas. Heart is not enlarged. Bony thorax intact again with mild degenerative changes. No new/acute findings.
== END 2019-10-14 01:53 | disposition home or self-care (01) ==
LOC: ED 22:25
DX: J44.1 Chronic obstructive pulmonary disease with (acute) exacerbation (principal); Z79.899 Other long term (current) drug therapy
CPT/HCPCS: 36000; 36415; 71045; 80053; 83605; 83735; 83880; 84484; 85025; 85610; 87631; 93005; 93041; 94640; 96374; 99284; 99291; J2930; A9270-GY